=== PATIENT | male | born 1995 | race African-American/Black ===

== ENCOUNTER 2017-06-26 16:16 | Emergency (ER) | payer MEDICAID, OTHER ==
[~2017-06-26] VITALS: Ht 175.3 cm; Wt 59.1 kg
[~2017-06-26 16:16] MED LIST: NOCURR
[2017-06-26] MEDS ORDERED: IBUPROFEN 800 MG TABLET PO ONE (17:45)
[2017-06-26 18:14] VITALS: BP 119/71
== END 2017-06-26 18:18 | disposition home or self-care (01) ==
LOC: EMS 16:18
DX: J40 Bronchitis, not specified as acute or chronic (principal); F17.210 Nicotine dependence, cigarettes, uncomplicated
CPT/HCPCS: 99283; 99406

== ENCOUNTER 2017-09-07 15:09 | Emergency (ER) | payer OTHER ==
[~2017-09-07] VITALS: Ht 175.3 cm; Wt 63.5 kg
[2017-09-07 15:35] VITALS: BP 118/64
[2017-09-07] MEDS ORDERED: IBUPROFEN 800 MG TABLET PO ONE (16:30)
[2017-09-07] MEDS ORDERED: METHOCARBAMOL 500 MG TABLET PO ONE (16:30)
== END 2017-09-07 17:14 | disposition home or self-care (01) ==
LOC: EMS 15:10
DX: S86.911A Strain of unspecified muscle(s) and tendon(s) at lower leg level, right leg, initial encounter (principal); F17.210 Nicotine dependence, cigarettes, uncomplicated; X58.XXXA Exposure to other specified factors, initial encounter; Y93.B9 Activity, other involving muscle strengthening exercises; Y92.89 Other specified places as the place of occurrence of the external cause; Y99.8 Other external cause status
CPT/HCPCS: 99283; 99406

== ENCOUNTER 2023-04-06 02:39 | Emergency (ER) | payer OTHER ==
[~2023-04-06] VITALS: Ht 175.3 cm; Wt 65.0 kg
[2023-04-06] MEDS ORDERED: ACETAMINOPHEN 500 MG TABLET PO ONE (03:00)
[2023-04-06] MEDS ORDERED: ONDANSETRON HCL 4 MG TABLET PO ONE (03:00)
[2023-04-06] MEDS ORDERED: PHENOBARB/HYOSCY/ATROPINE/SCOP 5 ML UDCUP ELIXIR PO ONE (03:00)
[2023-04-06] MEDS ORDERED: MAG HYDROX/AL HYDROX/SIMETH ES 30 ML SUSPENSION UDCUP PO ONE (03:00)
[2023-04-06 03:15] LABS: BASOPHILS % (AUTO) 1.8 % (0.0-2.0); EOSINOPHILS % (AUTO) 2.7 % (1.0-6.0); LYMPHOCYTES # (AUTO) 1.9 K/uL (1.0-4.8); LYMPHOCYTES % (AUTO) 48.9 % (22.0-44.0); MEAN CORPUSCULAR HEMOGLOBIN 30.9 pg (26.0-34.0); MEAN CORPUSCULAR HGB CONC 32.6 G/dL (31.0-37.0); MEAN CORPUSCULAR VOLUME 95 fL (80-100); MONOCYTES # (AUTO) 0.4 K/uL (0.1-1.0); MONOCYTES % (AUTO) 9.3 % (2.0-9.0); NEUTROPHILS # (AUTO) 1.4 K/uL (1.8-7.7); NEUTROPHILS % (AUTO) 37.3 % (40.0-70.0); PLATELET COUNT (AUTO) 245 K/uL (150-450); RED BLOOD CELL COUNT(AUTO) 4.53 MIL/uL (4.50-5.90); RED CELL DISTRIBUTION WIDTH 13.9 % (11.5-14.5)
[2023-04-06 03:27] LABS: ANION GAP 6 mmol/L (8-16); CALCIUM, TOTAL 9.5 mg/dL (8.8-10.5); CARBON DIOXIDE 32 mmol/L (22-29); CHLORIDE 103 mmol/L (98-107); CREATININE 1.11 mg/dL (0.60-1.30); GLOMERULAR FILTR. RATE CALC > 60 mL/min (>60); GLUCOSE,RANDOM 120 mg/dL (70-110); POTASSIUM 4.2 mmol/L (3.5-5.1); SODIUM SERUM 141 mmol/L (136-145)
[2023-04-06 03:33] LABS: ALANINE AMINOTRANSFERASE 19 U/L (12-78); ALBUMIN 3.7 g/dL (3.4-5.0); ALKALINE PHOSPHATASE 76 U/L (46-116); ASPARTATE AMINOTRANSFERASE 13 U/L (15-37); BILIRUBIN,TOTAL 0.2 mg/dL (0.1-1.0); LIPASE 142 U/L (16-77); TOTAL PROTEIN, SERUM 7.2 g/dL (6.4-8.2)
[2023-04-06 03:52] LABS: APPEARANCE,URINE CLEAR (CLEAR); BILIRUBIN,URINE NEGATIVE (NEGATIVE); GLUCOSE, URINE (UA) NEGATIVE (NEGATIVE); KETONES,URINE NEGATIVE (NEGATIVE); LEUKOCYTE ESTERASE ,URINE NEGATIVE (NEGATIVE); NITRATE,URINE NEGATIVE (NEGATIVE); OCCULT BLOOD,URINE NEGATIVE (NEGATIVE); PH,URINE 5.5 (5.0-8.0); PROTEIN,URINE NEGATIVE (NEGATIVE); SPECIFIC GRAVITIY, URINE 1.027 (1.003-1.030); UROBILINOGEN,URINE <=1.0 mg/dL (<=1.0)
[2023-04-06 04:04] LABS: BACTERIA,URINE None Seen /HPF (None Seen); RBC,URINE None Seen /HPF (0-2); SQUAMOUS EPITHELIAL CELL,UR Few /LPF (None Seen); WBC,URINE None Seen /HPF (0-5)
[2023-04-06] MEDS ORDERED: ONDA-104 PO (05:05)
[2023-04-06] MEDS ORDERED: ACET-66 PO (05:05)
[2023-04-06] MEDS ORDERED: MAG30ORA11 PO (05:05)
[2023-04-06] MEDS ORDERED: OMEP20 PO (05:05)
[2023-04-06 05:16] VITALS: BP 122/72; PULSE 75; RESP 18; TEMP 98.6
== END 2023-04-06 05:17 | disposition home or self-care (01) ==
LOC: EMS 02:39
DX: K29.70 Gastritis, unspecified, without bleeding (principal); R11.10 Vomiting, unspecified; F17.210 Nicotine dependence, cigarettes, uncomplicated
CPT/HCPCS: 99284; 80053; 81001; 83690; 85025; 36415; Q0162